=== PATIENT | female | born 1995 | race Caucasian/White ===

== ENCOUNTER 2018-01-18 10:07 | Observation (INO) ==
[2018-01-18] MEDS ORDERED: Ondansetron 4 MG/2 ML VIAL IVP PRN (10:53)
[2018-01-18] MEDS ORDERED: Ringers Solution, Lactated 1,000 ML IVC ONE (10:57)
[2018-01-18] MEDS ORDERED: Ringers Solution, Lactated 1,000 ML ONE (10:57)
--- NOTE | 2018-01-18 11:51 | OB/GYN Progress Note ---
Date of Encounter: 01/18/18 Time of Encounter: 11:45 - Assessment and Plan (1) 32 weeks gestation of Current Visit: Yes Status: Acute (2) Abdominal pain affecting Current Visit: Yes Status: Acute 1 L LR bolus Zofran IV Cervix unchanged on serial exam Abdominal pain does not correlate with uterine irritability, no abdominal pain with palpation Patient states nausea feels improved Agreeable to discharge home with labor and when to return precautions Plan of care discussed with Dr. Greer (3) Nausea and vomiting during Current Visit: Yes Status: Acute Subjective - Subjective Interval history: Pt complains of abdominal pain, diarrhea, nausea with emesis since 1:00 this morning. Patient states she has right lower quadrant abdominal pain which causes so severe it causes her to throw up. Pain is not constant in nature. Reports good movement, denies vaginal bleeding or leaking of fluid. Patient state they did note eggs in the house were on the food recall list. Patient states she ate 3 scrambled hard eggs last night prior to feeling sick, noted egg UPC code was on [employer] food recall list. Antepartum ROS: movement normal, contractions, no loss of fluid, no vaginal bleeding Objective - Vital Signs Vital Signs: Intake and Output 01/17/18 01/18/18 01/18/18 23:59 07:59 15:59 Other: Weight 80.4 kg Patient Weight 01/18/18 23:59 Weight 80.4 kg - Exam FHR: auscultation normal FHR comments: baseline 135 Auscultation: bilateral: normal Abdomen: Present: normal appearance, soft, gravid (Unable to reproduce pain with palpation. ) Uterus: Present: normal Cervical dilation: Fingertip, 50%
[2018-01-18 13:00] LABS: Bilirubin,Urine Negative (Negative); Blood,Urine Negative (Negative); Clarity,Urine Cloudy (Clear); Color,Urine Yellow (Yellow); Glucose,Urine (UA) Normal (Normal); Ketones,Urine 80 mg/dL (Negative); Leukocyte Esterase,Urine Trace (Negative); Nitrite,Urine Negative (Negative); PH,Urine 6.5 pH Units (5.0-8.0); Protein,Urine Trace mg/dL (Neg-Trace); Urobilinogen,Urine Normal (Normal)
[2018-01-18 13:03] LABS: Bacteria,Urine None Seen per hpf (None-Few); Hyaline Casts,Urine None Seen per lpf (None-Few); Squamous Epithelial Cell,Urine Many per lpf (None-Few)
[2018-01-18 13:11] LABS: Amphetamine Screen,Urine Negative ng/mL (Cutoff=1000); Barbiturate Screen,Urine Negative ng/mL (Cutoff=200); Benzodiazepines Screen,Urine Negative ng/mL (Cutoff=200); Cannabinoid Screen,Urine Negative ng/mL (Cutoff = 50); Cocaine Screen,Urine Negative ng/mL (Cutoff= 300); Opiate Screen,Urine Negative ng/mL (Cutoff=300); Phencyclidine Screen,Urine Negative ng/mL (Cutoff=25)
== END 2018-01-18 13:45 | disposition home or self-care (01) ==
LOC: 1NENULAB
PROVIDERS: ADMIT Student in an Organized Health Care Education/Training Program; ATTEND Student in an Organized Health Care Education/Training Program

== ENCOUNTER → 2018-02-12 02:25 | Observation (INO) ==
[2018-02-12 01:37] LABS: Amphetamine Screen,Urine Negative ng/mL (Cutoff=1000); Barbiturate Screen,Urine Negative ng/mL (Cutoff=200); Benzodiazepines Screen,Urine Negative ng/mL (Cutoff=200); Cannabinoid Screen,Urine Negative ng/mL (Cutoff = 50); Cocaine Screen,Urine Negative ng/mL (Cutoff= 300); Opiate Screen,Urine Negative ng/mL (Cutoff=300); Phencyclidine Screen,Urine Negative ng/mL (Cutoff=25)
[2018-02-12 01:56] LABS: Bilirubin,Urine Negative (Negative); Clarity,Urine Clear (Clear); Color,Urine Yellow (Yellow); Glucose,Urine (UA) Normal (Normal); Ketones,Urine Negative (Negative)
[2018-02-12 01:57] LABS: Blood,Urine Negative (Negative); Leukocyte Esterase,Urine Small (Negative); Nitrite,Urine Negative (Negative); PH,Urine 6.5 pH Units (5.0-8.0); Protein,Urine Negative (Neg-Trace); Urobilinogen,Urine Normal (Normal)
--- NOTE | 2018-02-12 02:02 | OB/GYN Progress Note ---
Date of Encounter: 02/12/18 Time of Encounter: 02:00 - Assessment and Plan (1) Decreased movement Current Visit: Yes Status: Acute Qualifiers: Fetus number: single or unspecified fetus Trimester: third trimester Qualified Code(s): O36.8130 - Decreased movements, third trimester, not applicable or unspecified (2) 35 weeks gestation of Current Visit: Yes Status: Acute (3) NST (non-stress test) reactive Current Visit: Yes Status: Acute NST 125 BPM, reactive. Subjective - Subjective Interval history: 22 year-old presenting at 35w4d with c/o decreased movement. She reports less movement than normal yesterday. And no movement for the last few hours despite eating sugary cereal and doing kick counts. She also reports increased urinary frequency that she feels is related to the baby being on her bladder. No LOF, VB or other complaints. Antepartum ROS: no loss of fluid, no vaginal bleeding, no movement normal , no contractions Objective - Exam FHR: category 1 FHR comments: NST reactive Auscultation: bilateral: normal Abdomen: Present: soft, gravid Uterus: Absent: tenderness - Labs Labs: Abnormal lab results Ur Leukocyte Esterase Small (Negative) H 02/12/18 01:00
[2018-02-12 02:17] LABS: Bacteria,Urine Few per hpf (None-Few); WBC,Urine 0-3 per hpf (0-3)
== END | disposition home or self-care (01) ==
LOC: 1NENULAB
PROVIDERS: ADMIT Registered Nurse; ATTEND Registered Nurse

== ENCOUNTER → 2018-02-21 00:40 | Observation (INO) ==
[2018-02-20 22:59] LABS: Amphetamine Screen,Urine Negative ng/mL (Cutoff=1000); Barbiturate Screen,Urine Negative ng/mL (Cutoff=200); Benzodiazepines Screen,Urine Negative ng/mL (Cutoff=200); Cannabinoid Screen,Urine Negative ng/mL (Cutoff = 50); Cocaine Screen,Urine Negative ng/mL (Cutoff= 300); Opiate Screen,Urine Negative ng/mL (Cutoff=300); Phencyclidine Screen,Urine Negative ng/mL (Cutoff=25)
--- NOTE | 2018-02-20 23:41 | OB/GYN Progress Note ---
Date of Encounter: 02/20/18 Time of Encounter: 23:38 - Assessment and Plan (1) 36 weeks gestation of Current Visit: Yes Status: Acute 36 week 5 days late IUP Reactive NST; no contractions Discharge home with PTL instructions and kick counts Follow up with appointment as previously scheduled and prn Subjective - Subjective Principal diagnosis: Back pain Interval history: at 36 weeks and 5 days presents to triage with c/o intermittent low back pain every 10 minutes, rates 4/10 on pain scale. 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 Denies dysuria, vaginal bleeding, leaking fluid, JASSO, visual disturbance and epigastric pain. States baby moving well. Antepartum ROS: movement normal, no loss of fluid, no vaginal bleeding, no contractions Objective - Exam FHR: category 1 FHR comments: 130 Auscultation: bilateral: normal Abdomen: Present: normal appearance, soft, gravid. Absent: tenderness Uterus: Present: normal. Absent: firm, tenderness Cervical dilation: fingertip Cervix effacement: 80 station: High Comments: VE per RN
== END | disposition home or self-care (01) ==
LOC: 1NENULAB
PROVIDERS: ADMIT Obstetrics & Gynecology; ATTEND Obstetrics & Gynecology

== ENCOUNTER 2018-03-10 04:00 | Inpatient (IN) ==
[2018-03-10] MEDS ORDERED: Famotidine 20 MG/2 ML VIAL IVP PRN (04:22)
[2018-03-10] MEDS ORDERED: *HR* Nalbuphine 10 MG/ML AMPUL IVP PRN (04:22)
[2018-03-10] MEDS ORDERED: Metoclopramide 10 MG/2 ML VIAL IVP PRN (04:22)
[2018-03-10] MEDS ORDERED: Lidocaine 1% 20 ML MDV INFILT PRN (04:22)
[2018-03-10] MEDS ORDERED: Naloxone 0.4 MG/ML INJ IVP PRN (04:22)
[2018-03-10] MEDS ORDERED: Ondansetron 4 MG/2 ML VIAL IVP PRN (04:22)
[2018-03-10] MEDS ORDERED: Ringers Solution, Lactated 1,000 ML IVC SCH (04:30)
[2018-03-10] MEDS ORDERED: Penicillin G Potassium 5,000,000 UNIT in 0.9 % Sodium Chloride Mini Bag 100 ML IVPB ONE (04:30)
[2018-03-10] MEDS: miSOPROStol 100 MCG TABLET PO PRN ×2 (05:01→09:18)
[2018-03-10 05:06] LABS: Basophils % 0.2 %; Eosinophils # 0.1 K/mcL (0.0-0.6); Eosinophils % 1.3 %; Hematocrit 35.7 % (35.3-44.9); Hemoglobin 11.5 g/dL (11.5-15.4); Immature Granulocytes % 0.5 % (0-4); Lymphocytes # 2.1 K/mcL (0.6-4.6); Lymphocytes % 21.8 %; Mean Corpuscular HGB Conc 32.2 g/dL (31.6-35.5); Mean Corpuscular Hemoglobin 27.6 pg (28.0-33.3); Mean Corpuscular Volume 85.8 fL (83.0-100.0); Mean Platelet Volume 10.6 fL (9.4-12.4); Monocytes # 1.1 K/mcL (0.0-1.3); Monocytes % 11.9 %; Neutrophils # 6.1 K/mcL (1.6-8.9); Platelet Count 236 K/mcL (140-400); Red Blood Count 4.16 M/mcL (3.82-4.97); Red Cell Distribution Width 13.6 % (11.5-14.5); Segmented Neutrophils % 64.3 %
[2018-03-10 05:24] LABS: Amphetamine Screen,Urine Negative ng/mL (Cutoff=1000); Barbiturate Screen,Urine Negative ng/mL (Cutoff=200); Benzodiazepines Screen,Urine Negative ng/mL (Cutoff=200); Cannabinoid Screen,Urine Negative ng/mL (Cutoff = 50); Cocaine Screen,Urine Negative ng/mL (Cutoff= 300); Opiate Screen,Urine Negative ng/mL (Cutoff=300); Phencyclidine Screen,Urine Negative ng/mL (Cutoff=25)
[2018-03-10] MEDS ORDERED: EPHEDrine 50 MG/ML VIAL IVP PRN (06:41)
--- NOTE | 2018-03-10 06:44 | Anesthesia Evaluation PreOp ---
Date of Encounter: 03/10/18 Time of Encounter: 06:41 - Past History Planned Operation: vaginal del, 39wk induction Cardiac History: Denies any Significant Hx Pulmonary History: Denies Any Significant HX COMMERCIAL CREDIT OFFICER History: Denies Any Significant HX Other Medical History: Thyroid (goiter, needle biopsy no meds), Other (occ "sciatic pain" shoots to feet on right worse than left, worse after walking resolves quickly no muscle weakness reported. not positional dependent.) Anesthesia History: No Prior Anesthetic Complications, Past Anesthesia ( previous epidural large hot spot on left, did not resolve.) Alcohol Use: none Drug use: none Medications and Allergies One Tablet 1 tab PO DAILY 12/31/17 [History] 3 Allergy/AdvReac Type Severity Reaction Status Date / Time No Known Allergies Allergy Verified 03/10/18 04:32 Anesthesia Results - Labs 03/10/18 04:23 Anesthesia Exam - HEENT Pupil (Motor): Pupils equal Mallampati: II Teeth: Normal Oral Opening: Greater than 3 - COMMERCIAL CREDIT OFFICER LOC: Oriented COMMERCIAL CREDIT OFFICER Motor: Normal RUE, Normal LUE, Normal RLE, Normal LLE, Normal Face COMMERCIAL CREDIT OFFICER Sensory: Normal: RUE, LUE, RLE, LLE, Face - Cardiac Rhythm: Regular Murmur: None - Pulmonary Breath Sounds: bilateral Clear Respiratory Effort: Symmetrical Anesthesia Assess/Plan ASA Score: 2 Modified Tiera Scale for Level of Consciousness: Cooperative, oriented, and tranquil Anesthetic Plan: General, Regional Monitoring Plan: Standard Monitors
[2018-03-10] MEDS ORDERED: Epidural Premix (fent/bupiv) 110 ML EP SCH (06:45)
[2018-03-10] MEDS: Penicillin G Potassium 2,500,000 UNIT in 0.9 % Sodium Chloride 100 ML IVPB SCH ×4 (09:19→21:33)
--- NOTE | 2018-03-10 13:28 | OB/GYN History & Physical ---
Date of Encounter: 03/10/18 Time of Encounter: 13:26 Assessment and Plan (1) Group B streptococcal infection during Current visit: Yes Status: Acute (2) Gestational diabetes Current visit: Yes Status: Chronic Qualifiers: Gestational diabetes mellitus control: diet-controlled Trimester: third trimester Qualified Code(s): O24.410 - Gestational diabetes mellitus in , diet controlled (3) 39 weeks gestation of Current visit: Yes Status: Chronic History of Present Illness HPI: Ms. Monae is a 22 year old female Patient is a 22-year-old 2 para 1 white female who is at 39 weeks admitted for induction of labor. She been followed in our office without any problems other than gestational diabetes which is been diet-controlled. She denies spontaneous rupture membranes, vaginal bleeding, contractions, and reports active fetus. Past Med Surg Social Fam HX - Past Medical History Additional medical history: gest DM, Thyroid biopsy. Psychiatric history: no psych history - Past Surgical History Additional surgical history: wisdom and tonsils adnoids - Social History Smoking Status: Never smoker Smokeless Tobacco Status: No Alcohol use: none Drug use: none - Family History Father Adopted: No Family Member Ethnicity: Non- Living Status: Still Living Hx Family Cardiac Disorders: Yes Hx Family Respiratory Disorders: No Hx Family Cancer: No Hx Family GI Disorders: No Hx Family Endocrine Disorder: No Hx Family Neuromuscular Disorders: No Hx Family Neurologic Disorders: No Hx Family HEENT Disorders: No Hx Family Autoimmune Disorders: No Obstetrical History - Pregnancies : 2 Para: 1 Medications and Allergies One Tablet 1 tab PO DAILY 12/31/17 [History] 3 Allergy/AdvReac Type Severity Reaction Status Date / Time No Known Allergies Allergy Verified 03/10/18 04:32 Review of System OB All systems PM: reviewed and no additional remarkable complaints except as stated - Genitourinary Genitourinary: amenorrhea - Menstruation Menstruation: amenorrhea Exam - Vital Signs Vital signs: Initial Vital Signs Temp Pulse Resp BP 97.8 F 77 16 128/67 03/10/18 04:28 03/10/18 04:28 03/10/18 04:28 03/10/18 04:28 - Constitutional Constitutional: well developed, well nourished, no acute distress, average body habitus - HEENT HEENT: Normocephaly - Neck Neck exam: full ROM - Lungs Respiratory exam: CTAB - Cardiovascular Cardiovascular exam: RRR - Abdomen Abdomen: Present: gravid - Extremities Extremities exam: full ROM - Cervix Dilation: 3 Effacement: 60 Station: -1 Results Result Diagrams: 03/10/18 04:23 Abnormal lab results MCH 27.6 pg (28.0-33.3) L 03/10/18 04:23 All other labs normal. - VTE Reasons for not Prescribing Prophylaxis: Treatment not Indicated - Low risk for VTE
[2018-03-10] MEDS ORDERED: Oxytocin 20 units/ LR 1000 mL 20 UNIT/1,000 ML BAG IVC SCH (13:30)
[2018-03-10] MEDS ORDERED: Lidocaine -MPF 1% 5 ML AMPUL ONE (16:16)
--- NOTE | 2018-03-10 16:44 | Anesthesia Procedures ---
Date of Encounter: 03/10/18 Time of Encounter: 16:42 Procedures: Anesthesia - Epidural/Spinal Patient ID/Chart reviewed: Yes Patient examined: Yes OB Eval: Gestational age: 39.2 OB Eval: : 2 OB Eval: Hx Para: 1 OB Eval: Dilated at (cm): 4 OB Eval: Contractions: Non-stressed pattern Consent Obtained: Yes Supplemental Oxygen: None/Room Air Site Prep: Aseptic Technique, Sterile prep and drape, Povidone-Iodine 1% Patient position: upright Local Anesthetic: Lidocaine 1% Amount of Local Anesthetic used: 3 Touhy Needle Gauge: 18 Touhy Needle Depth (cm): 6 Catheter Depth at Skin (cm): 20 Test Dose (1.5% Lido + Epi): Volume given (mls): 5 Test Dose Result: Negative Loading Dose: Other: 10mls of epidural pharm bag premix solution Loading Dose Administered: Thru Catheter Infusion Med: 0.125% Bupivacaine w/ 2 mcg/ml Fentanyl Infusion Rate (mls/hr): 15 ([id number]) Catheter Secured in Place: Tegaderm, Tape Interspace Used: L3-L4 Loss of Resistance (ADDI): Yes Blood: No CSF: No Paresthesia: No Procedure: pt tolerated procedure well. no complications. vss. fhr stable. see nursing notes for full set of vitals.
--- NOTE | 2018-03-10 18:37 | OB/GYN Progress Note ---
Date of Encounter: 03/10/18 Time of Encounter: 18:36 - Assessment and Plan (1) Group B streptococcal infection during Current Visit: Yes Status: Acute (2) Gestational diabetes Current Visit: Yes Status: Chronic Qualifiers: Gestational diabetes mellitus control: diet-controlled Trimester: third trimester Qualified Code(s): O24.410 - Gestational diabetes mellitus in , diet controlled (3) 39 weeks gestation of Current Visit: Yes Status: Chronic Subjective - Subjective Interval history: AROM /clear Objective - Vital Signs Vital Signs: Vital Signs Temp Pulse Resp BP 03/10/18 04:28 97.8 F 77 16 128/67 Intake and Output 03/10/18 03/10/18 03/10/18 07:59 15:59 23:59 Intake Total 200 / 200 Balance 200 / 200 Intake: IV Fluids 200 / 200 Pfizerpen 2,500,000 UNIT In 0.9 200 / 200 % Sodium Chloride 100 ML @ 100 mls/hr IVPB Q4H [facility] Rx#: [id number] Other: Weight 80.6 kg Patient Weight 03/10/18 23:59 Weight 80.6 kg - Exam FHR: category 1 Abdomen: Present: soft, gravid Cervical dilation: 4 Cervix effacement: 60 station: -1 - Labs Labs: Abnormal lab results MCH 27.6 pg (28.0-33.3) L 03/10/18 04:23
[2018-03-10] MEDS ORDERED: Oxytocin 20 units/ LR 1000 mL 20 UNIT/1,000 ML BAG IVC ONE (21:29)
--- NOTE | 2018-03-10 22:50 | OB/GYN Procedure Note ---
Delivery - Delivery Date: 03/10/18 Provider: Vishnu Ozuna Intrapartum events: none Delivery induction: misoprostol Delivery augmentation: rupture of membranes, pitocin Delivery monitor: external FHT, external uterine, internal uterine Anesthesia: epidural Quantitated Blood Loss: 100 - (s) A Infant Delivery Date: 03/10/18 Delivery Time: 22:27 Presentation: vertex Position: OA Route of delivery: Gender: Female Viability: Viable Pounds: 6 Ounces: 13 Weight Gram: 3095 kg at 1 minute: 8 at 5 mins: 10 Shoulder Dystocia: not encountered Specimens collected: cord blood Placenta: spontaneous Cord: nuchal cord, nuchal cut - Repair Episiotomy: none Laceration Description: None - Complications Delivery complications: none - Disposition Mom disposition: stable in LDR disposition: stable in LDR - Comments Comments: Patient progressed to complete and on the perineum. She delivered a live female at 2227 weight 613 g with 3095. Apgars 8 and 10. Placenta delivered spontaneously intact. Estimated blood loss was 100 mL.
[2018-03-11] MEDS ORDERED: Oxytocin 20 units/ LR 1000 mL 20 UNIT/1,000 ML BAG IVC SCH (01:33)
[2018-03-11] MEDS ORDERED: Acetaminophen 325 MG TABLET PO PRN (01:33)
[2018-03-11] MEDS ORDERED: Lanolin 7 G OINT...G. TP PRN (01:33)
[2018-03-11] MEDS ORDERED: Benzocaine/Menthol 56 GM AEROSOL SPRAY TP PRN (01:33)
[2018-03-11] MEDS: Ibuprofen 600 MG TABLET PO PRN ×4 (02:31→21:38)
[2018-03-11 04:50] LABS: Basophils % 0.1 %; Eosinophils % 0.3 %; Hematocrit 32.4 % (35.3-44.9); Hemoglobin 10.3 g/dL (11.5-15.4); Immature Granulocytes % 0.4 % (0-4); Lymphocytes # 1.2 K/mcL (0.6-4.6); Lymphocytes % 10.2 %; Mean Corpuscular HGB Conc 31.8 g/dL (31.6-35.5); Mean Corpuscular Hemoglobin 26.9 pg (28.0-33.3); Mean Corpuscular Volume 84.6 fL (83.0-100.0); Mean Platelet Volume 10.2 fL (9.4-12.4); Monocytes # 1.1 K/mcL (0.0-1.3); Monocytes % 9.8 %; Neutrophils # 9.2 K/mcL (1.6-8.9); Platelet Count 212 K/mcL (140-400); Red Blood Count 3.83 M/mcL (3.82-4.97); Red Cell Distribution Width 13.6 % (11.5-14.5); Segmented Neutrophils % 79.2 %
[2018-03-11] MEDS ORDERED: Prenatal Vit/FA 1 EACH TABLET PO SCH (09:00)
--- NOTE | 2018-03-11 10:36 | OB/GYN Progress Note ---
Date of Encounter: 03/11/18 Time of Encounter: 10:33 - Assessment and Plan (1) Vaginal delivery Current Visit: Yes Status: Acute S/P day #2 Continue routine PP care Anticipate discharge tomorrow Subjective - Subjective Interval history: Doing well. Ambulating and voiding without difficulty. Tolerating regular diet. Mild cramping well controlled with Ibuprofen. Lochia light and without clots. Infant bottle feeding well. Patient reports: appetite normal, voiding normally, pain well controlled, ambulating normally [place]: doing well, bottle feeding Objective - Latest Vital Signs Latest vital signs: Vital Signs Temp Pulse Pulse Resp BP Pulse Ox 03/11/18 09:34 16 16 03/11/18 08:28 97.7 F 73 14 116/62 97 03/11/18 03:54 98.3 F 76 16 121/69 97 03/11/18 02:20 98.2 F 84 16 118/80 97 03/11/18 01:30 98.3 F 67 16 118/80 97 Intake and Output 03/10/18 03/11/18 03/11/18 23:59 07:59 15:59 Intake Total 100 / 100 0 / 0 Output Total 1300 / 1300 2800 / 2800 Balance -1200 / -1200 -2800 / -2800 Intake: IV Fluids 100 / 100 Pfizerpen 2,500,000 UNIT In 0.9 100 / 100 % Sodium Chloride 100 ML @ 100 mls/hr IVPB Q4H [facility] Rx#: [id number] Oral 0 / 0 Output: Urine 2800 / 2800 Estimated Blood Loss 100 / 100 Catheter 1200 / 1200 Other: Weight 78.3 kg Patient Weight 03/11/18 23:59 Weight 78.3 kg - Exam Lungs: bilateral: normal Chest: Normal S1, Normal S2 Extremities: Present: normal Abdomen: Present: normal appearance Uterus: Present: firm Uterus Position: At Umbilicus, Midline - Labs Labs: Laboratory Results - last 24 hr 03/11/18 04:14 WBC 11.6 H RBC 3.83 Hgb 10.3 L Hct 32.4 L MCV 84.6 MCH 26.9 L MCHC 31.8 RDW 13.6 Plt Count 212 MPV 10.2 Immature Gran % 0.4 Seg Neutrophils % 79.2 Lymphocytes % 10.2 Monocytes % 9.8 Eosinophils % 0.3 Basophils % 0.1 Neutrophils # 9.2 H Lymphocytes # 1.2 Monocytes # 1.1 Eosinophils # 0.0 Basophils # 0.0
[2018-03-11 20:49] VITALS: BP 113/71
[2018-03-11 23:08] LABS: Bilirubin,Urine Negative (Negative); Blood,Urine Large (Negative); Clarity,Urine Slightly Cloudy (Clear); Color,Urine Yellow (Yellow); Glucose,Urine (UA) Normal (Normal); Ketones,Urine Negative (Negative); Leukocyte Esterase,Urine Small (Negative); Nitrite,Urine Negative (Negative); Protein,Urine 30 mg/dL (Neg-Trace); Urobilinogen,Urine Normal (Normal)
[2018-03-11 23:15] LABS: RBC,Urine 50-100 per hpf (0-3); Squamous Epithelial Cell,Urine Many per lpf (None-Few); WBC,Urine 15-30 per hpf (0-3)
[2018-03-11 23:16] LABS: Bacteria,Urine Few per hpf (None-Few); Renal Epithelial Cells,Urine Few per hpf (None-Few)
--- NOTE | 2018-03-11 23:26 | Discharge Summary ---
Date of Encounter: 03/11/18 Time of Encounter: 23:23 - Discharge Diagnosis (1) Vaginal delivery Priority: Primary Status: Acute Comments: Vaginal delivery Meeting milestones discharge home today with Follow up in office in 4-6 weeks and PRN - Discharge Medications Prescriptions: Ibuprofen [Motrin] 600 mg PO Q6HR PRN #30 tablet PRN Reason: Cramping Docusate [Colace] 100 mg PO BID #10 capsule Home Medications: One Tablet 1 tab PO DAILY 12/31/17 [History] Docusate [Colace] 100 mg PO BID #10 capsule 03/11/18 [Rx] Ibuprofen [Motrin] 600 mg PO Q6HR PRN #30 tablet 03/11/18 [Rx] Lanolin [Lansinoh] 1 appl TP QID PRN oint...g. 03/11/18 [Rx] Allergies/Adverse Reactions: 3 Allergy/AdvReac Type Severity Reaction Status Date / Time No Known Allergies Allergy Verified 03/10/18 04:32 Data Procedures and tests throughout hospitalization: Laboratory Tests 03/10/18 03/10/18 03/11/18 04:23 04:40 04:14 WBC 9.5 11.6 H RBC 4.16 3.83 Hgb 11.5 10.3 L Hct 35.7 32.4 L MCV 85.8 84.6 MCH 27.6 L 26.9 L MCHC 32.2 31.8 RDW 13.6 13.6 Plt Count 236 212 MPV 10.6 10.2 Immature Gran % 0.5 0.4 Seg Neutrophils % 64.3 79.2 Lymphocytes % 21.8 10.2 Monocytes % 11.9 9.8 Eosinophils % 1.3 0.3 Basophils % 0.2 0.1 Neutrophils # 6.1 9.2 H Lymphocytes # 2.1 1.2 Monocytes # 1.1 1.1 Eosinophils # 0.1 0.0 Basophils # 0.0 0.0 Urine Color Urine Clarity Urine pH Ur Specific [place] Urine Protein Urine Glucose (UA) Urine Ketones Urine Blood Urine Nitrite Urine Bilirubin Urine Urobilinogen Ur Leukocyte Esterase Urine Microscopic RBC Urine Microscopic WBC Ur Squamous Epith Cells Ur Renal Epithelial Cell Urine Bacteria Ur Culture Indicated? Urine Opiates Screen Negative Ur Barbiturates Screen Negative Ur Phencyclidine Scrn Negative Ur Amphetamines Screen Negative U Benzodiazepines Scrn Negative Urine Cocaine Screen Negative U Marijuana (THC) Screen Negative 03/11/18 22:23 WBC RBC Hgb Hct MCV MCH MCHC RDW Plt Count MPV Immature Gran % Seg Neutrophils % Lymphocytes % Monocytes % Eosinophils % Basophils % Neutrophils # Lymphocytes # Monocytes # Eosinophils # Basophils # Urine Color Yellow Urine Clarity Slightly Cloudy A Urine pH 7.0 Ur Specific [place] 1.020 Urine Protein 30 H Urine Glucose (UA) Normal Urine Ketones Negative Urine Blood Large H Urine Nitrite Negative Urine Bilirubin Negative Urine Urobilinogen Normal Ur Leukocyte Esterase Small H Urine Microscopic RBC 50-100 H Urine Microscopic WBC 15-30 H Ur Squamous Epith Cells Many H Ur Renal Epithelial Cell Few Urine Bacteria Few Ur Culture Indicated? NO. A Urine Opiates Screen Ur Barbiturates Screen Ur Phencyclidine Scrn Ur Amphetamines Screen U Benzodiazepines Scrn Urine Cocaine Screen U Marijuana (THC) Screen Labs on day of discharge: Labs from last 24 hours 03/11/18 03/11/18 22:23 04:14 WBC 11.6 H RBC 3.83 Hgb 10.3 L Hct 32.4 L MCV 84.6 MCH 26.9 L MCHC 31.8 RDW 13.6 Plt Count 212 MPV 10.2 Immature Gran % 0.4 Seg Neutrophils % 79.2 Lymphocytes % 10.2 Monocytes % 9.8 Eosinophils % 0.3 Basophils % 0.1 Neutrophils # 9.2 H Lymphocytes # 1.2 Monocytes # 1.1 Eosinophils # 0.0 Basophils # 0.0 Urine Color Yellow Urine Clarity Slightly Cloudy A Urine pH 7.0 Ur Specific [place] 1.020 Urine Protein 30 H Urine Glucose (UA) Normal Urine Ketones Negative Urine Blood Large H Urine Nitrite Negative Urine Bilirubin Negative Urine Urobilinogen Normal Ur Leukocyte Esterase Small H Urine Microscopic RBC 50-100 H Urine Microscopic WBC 15-30 H Ur Squamous Epith Cells Many H Ur Renal Epithelial Cell Few Urine Bacteria Few Ur Culture Indicated? NO. A Date of admission: 03/10/18 04:20 Primary care physician: Ju Hicks CNP Consults: 03/11/18 01:33 Consult to Map Drafter [CONS] Routine Comment: Vaginal delivery, consult needed Discharging clinician: Regina Hodge Anticipated date of discharge: 03/11/18 - Patient Status Disposition: Home, Self-Care Condition: Good Functional capacity at discharge: independent ambulation Overall status at discharge: patient is progressing back to baseline - Discharge Instructions Instructions: Vaginal Delivery (GEN) Follow Up With: Ju Hicks CNP [Primary Care Provider] - Vishnu Ozuna MD [Partnered Physician] - - Diet and Activity Activity: increase activity as tolerated Diet: regular diet Hospital Course Reason for admission: induction of labor, IUP at term Delivery: Episiotomy: none Laceration: none Other procedures: none complications: none Discharge diagnosis: IUP at term delivered [place] baby: female Time Attestation: Total time spent providing and/or coordinating discharge services: Time Spent: Less than 30 minutes Exam - Constitutional Vitals: Temp Pulse Resp BP Pulse Ox 97.9 F 87 14 113/71 98 03/11/18 20:00 03/11/18 20:00 03/11/18 20:00 03/11/18 20:00 03/11/18 20:00
== END 2018-03-12 06:32 | disposition home or self-care (01) | DRG 774 ==
LOC: 1NENULAB 04:20 → 1NENUOBS 03-11 01:29
PROVIDERS: ADMIT Obstetrics & Gynecology; ATTEND Obstetrics & Gynecology